=== PATIENT | female | born 1940 | race Caucasian/White ===

== ENCOUNTER 2019-01-10 21:05 | Emergency (ER) | payer MEDICAID, MEDICARE ==
[~2019-01-10] VITALS: Ht 157.5 cm; Wt 660.4 kg
--- NOTE | 2019-01-10 21:20 | NUR ---
Patient ambulated with stable gait. AAOx4. Patient relative at bedside for interpretation. Speech is clear, speaks in complete sentences. No neuro deficits noted. Patient came in with c/o N/V/D x 4 days s/p new diabetes medication administration. Patient in bed at lowest position, side rails upx2, call light within reach. Fall precautions per protocol implemented.
[2019-01-10] MEDS ORDERED: HYDROMORPHONE 1 MG/1 ML DISP.SYRIN IV ONE (21:30)
[2019-01-10] MEDS ORDERED: ONDANSETRON 4 MG/2 ML VIAL IV ONE (21:30)
[2019-01-10] MEDS ORDERED: IV NORMAL SALINE 1000 ML BAG IV ONE (21:30)
[2019-01-10] MEDS ORDERED: ONDANSETRON 4 MG/2 ML VIAL ONE (21:33)
[2019-01-10] MEDS ORDERED: HYDROMORPHONE 1 MG/1 ML DISP.SYRIN ONE (21:33)
[2019-01-10 21:59] LABS: CARBON DIOXIDE 20 mmol/L (21-32); CHLORIDE 100 mmol/L (98-107); GLUCOSE 132 mg/dL (74-106); POTASSIUM 4.3 mmol/L (3.5-5.1); UREA NITROGEN, BLOOD 19 mg/dL (7-18)
[2019-01-10 22:02] LABS: BASOPHILS # (AUTO) 0.1 K/uL (0.0-8.0); EOSINOPHILS # (AUTO) 0.2 K/uL (0.0-0.7); LYMPHOCYTES # (AUTO) 2.5 K/uL (20.0-40.0); MONOCYTES # (AUTO) 0.7 K/uL (2.0-10.0); PLATELET COUNT (AUTO) 280 K/uL (179-408); WHITE BLOOD COUNT (AUTO) 7.1 K/uL (3.8-11.8)
[2019-01-10 22:04] LABS: EOSINOPHILS % (AUTO) 2.4 % (0.0-7.0); HEMATOCRIT 24.6 % (31.2-41.9); LYMPHOCYTES % (AUTO) 35.5 % (20.5-51.5); MEAN CORPUSCULAR HEMOGLOBIN 17.4 uug (24.7-32.8); MEAN CORPUSCULAR HGB CONC 29 g/dL (32.3-35.6); MEAN CORPUSCULAR VOLUME 59.3 fL (75.5-95.3); MONOCYTES % (AUTO) 10.2 % (0.0-11.0); NEUTROPHILS # (AUTO) 3.6 K/uL (1.8-8.9); NEUTROPHILS % (AUTO) 50.9 % (38.5-71.5); RED BLOOD CELL COUNT(AUTO) 4.16 MIL/uL (3.63-4.92)
[2019-01-10 22:05] LABS: ALANINE AMINOTRANSFERASE 21 U/L (14-59); ALKALINE PHOSPHATASE 46 U/L (50-136); ASPARTATE AMINOTRANSFERASE 12 U/L (15-37); BILIRUBIN,DIRECT 0.1 mg/dL (0.0-0.2); BILIRUBIN,TOTAL 0.4 mg/dL (0.2-1.0); LIPASE 89 U/L (73-393)
[2019-01-10 22:07] LABS: HEMOGLOBIN 7.3 g/dL (10.9-14.3)
--- NOTE | 2019-01-10 22:11 | NUR ---
ERMD notified of HGB 7.3 and is aware of result. Per patient's relative, she stated that they are aware of the lab value being that low.
[2019-01-10 22:40] VITALS: BP 120/56
--- NOTE | 2019-01-10 22:41 | NUR ---
Patient discharged to home in stable conditon. Written and verbal after care instructions given. Patient verbalizes understanding of instructions. Patient ambulated with stable gait.
== END 2019-01-10 22:41 | disposition home or self-care (01) ==
LOC: ER 21:05
DX: D64.9 Anemia, unspecified (principal); R11.2 Nausea with vomiting, unspecified; R10.9 Unspecified abdominal pain; R19.7 Diarrhea, unspecified; E78.5 Hyperlipidemia, unspecified; E11.9 Type 2 diabetes mellitus without complications
CPT/HCPCS: 36415; 80048; 80076; 83690; 85025; 96374; 96375; 99283; J1170; J2405; A4663; J7030

== ENCOUNTER 2022-08-22 11:44 | Emergency (ER) | payer MEDICARE ==
[~2022-08-22] VITALS: Ht 165.1 cm; Wt 56.7 kg
[2022-08-22] MEDS ORDERED: BENZ-13 PO (12:52)
--- NOTE | 2022-08-22 13:05 | NUR ---
Patient discharged to home in stable condition. Written and verbal after care instructions given. Patient verbalizes understanding of instructions. Stressed follow up or return to ER for worsening s/s.
== END 2022-08-22 13:08 | disposition home or self-care (01) ==
LOC: ER 11:51
DX: J06.9 Acute upper respiratory infection, unspecified (principal); Z20.822 Contact with and (suspected) exposure to COVID-19; E11.9 Type 2 diabetes mellitus without complications; E78.5 Hyperlipidemia, unspecified
CPT/HCPCS: 71045; 87400; A4663

== ENCOUNTER 2023-02-09 05:18 | Emergency (ER) | payer MEDICARE, OTHER ==
[~2023-02-09] VITALS: Ht 162.6 cm; Wt 56.7 kg
[~2023-02-09 05:18] MED LIST: BENZ-13 PO
--- NOTE | 2023-02-09 05:39 | NUR ---
BIB family member with c/o abd pain, diarrhea x 3 days. Patient is alert and oriented x 3 Farsi speaking only. No s/s of any distress noted at this time. Assisted into gown, placed on monitor, informed of plan of care, #20g established in left AC, blood collected and sent to lab. has seen patient at bedside for exam. Side rails up will continue to monitor.
[2023-02-09] MEDS ORDERED: HYDROMORPHONE 1 MG/1 ML DISP.SYRIN IV ONE (05:45)
[2023-02-09] MEDS ORDERED: ONDANSETRON 4 MG/2 ML VIAL IV ONE (05:45)
[2023-02-09] MEDS ORDERED: IV NORMAL SALINE 1000 ML BAG IV ONE (05:45)
[2023-02-09] MEDS ORDERED: HYDROMORPHONE 1 MG/1 ML DISP.SYRIN ONE (05:47)
[2023-02-09] MEDS ORDERED: ONDANSETRON 4 MG/2 ML VIAL ONE (05:47)
[2023-02-09] MEDS ORDERED: OLME1TAB90 PO (05:57)
[2023-02-09] MEDS ORDERED: ASPI81TA31 PO (05:57)
[2023-02-09] MEDS ORDERED: ROSU20TA2 PO (05:57)
[2023-02-09] MEDS ORDERED: LOPE2TAB25 PO (05:57)
[2023-02-09] MEDS ORDERED: EMPA25TA PO (05:57)
[2023-02-09] MEDS ORDERED: GLIM1TAB18 PO (05:57)
[2023-02-09] MEDS ORDERED: LINA5TAB PO (05:57)
[2023-02-09] MEDS ORDERED: DEXL60CA3 PO (05:57)
[2023-02-09] MEDS ORDERED: METF-442 PO (05:57)
[2023-02-09] MEDS ORDERED: REPA2TAB10 PO (05:57)
--- NOTE | 2023-02-09 05:57 | NUR ---
Patient has been medicated as per order, IVF infusing as per order.
[2023-02-09 06:09] LABS: HEMATOCRIT 41.1 % (31.2-41.9); MEAN CORPUSCULAR HEMOGLOBIN 26.8 uug (24.7-32.8); MEAN CORPUSCULAR VOLUME 83.2 fL (75.5-95.3); PLATELET COUNT (AUTO) 212 K/uL (179-408)
[2023-02-09 06:20] LABS: CARBON DIOXIDE 23 mmol/L (21-32); CHLORIDE 98 mmol/L (98-107); CREATININE 1.5 mg/dL (0.6-1.3); GLUCOSE 215 mg/dL (74-106); POTASSIUM 4.4 mmol/L (3.5-5.1); UREA NITROGEN, BLOOD 32 mg/dL (7-18)
[2023-02-09 06:28] LABS: ALANINE AMINOTRANSFERASE 26 U/L (14-59); ALKALINE PHOSPHATASE 45 U/L (50-136); ASPARTATE AMINOTRANSFERASE 19 U/L (15-37); BILIRUBIN,DIRECT 0.1 mg/dL (0.0-0.2); BILIRUBIN,TOTAL 0.5 mg/dL (0.2-1.0); TOTAL PROTEIN, SERUM 7.9 g/dL (6.4-8.2)
--- NOTE | 2023-02-09 06:34 | NUR ---
Patient resting, remains easy to arouse, family at bedside aware awaiting results. No s/s of any distress noted, will continue to monitor.
[2023-02-09] MEDS ORDERED: SWABABLE VALVE TRANSFER SET EA MC ONE (06:38)
[2023-02-09] MEDS ORDERED: IOHEXOL 300MG/ML 100 ML INFUS..BTL ONE (06:39)
[2023-02-09] MEDS ORDERED: IV NORMAL SALINE 250 ML IV ONE (06:39)
--- NOTE | 2023-02-09 06:57 | NUR ---
Patient going off unit to CT via gurney at this time, family member also left at this time.
--- NOTE | 2023-02-09 07:00 | NUR ---
pt CT in process per JOHN Medeiros
[2023-02-09 07:04] LABS: LIPASE 269 U/L (73-393)
--- NOTE | 2023-02-09 07:30 | NUR ---
collected and sent urine to lab pt back from CT
--- NOTE | 2023-02-09 07:39 | NUR ---
covid swab collected and sent to lab
[2023-02-09 07:42] LABS: *BILIRUBIN,URIN NEGATIVE (NEGATIVE); *BLOOD, URINE NEGATIVE (NEGATIVE); *CLARITY,URINE CLEAR (CLEAR); *COLOR,URINE YELLOW (YELLOW); *UROBILINOGEN,URINE 0.2 E.U./dl (NORMAL); LEUKOCYTE ESTERASE ,URINE NEGATIVE (NEGATIVE); NITRITE, URINE NEGATIVE (NEGATIVE); PH,URINE 6.5 (5.0-8.0)
[2023-02-09 07:58] LABS: *KETONES,URINE 2+ (NEGATIVE)
[2023-02-09 08:00] LABS: UGLUCOSE 3+ (NEGATIVE)
--- NOTE | 2023-02-09 08:59 | NUR ---
called radiology for u/s f/u
--- NOTE | 2023-02-09 09:41 | NUR ---
pt. is able tro dc home, is currently speaking with dtr at this time
[2023-02-09] MEDS ORDERED: ONDA4TAB5 PO (09:47)
[2023-02-09 09:50] VITALS: BP 120/80
== END 2023-02-09 10:11 | disposition home or self-care (01) ==
LOC: ER 05:23
DX: R10.13 Epigastric pain (principal); R19.7 Diarrhea, unspecified; R11.2 Nausea with vomiting, unspecified; E78.5 Hyperlipidemia, unspecified; E11.9 Type 2 diabetes mellitus without complications; R07.89 Other chest pain; Z79.82 Long term (current) use of aspirin; Z79.899 Other long term (current) drug therapy; Z20.822 Contact with and (suspected) exposure to COVID-19
CPT/HCPCS: 99285; 74177; 96374; 76705; 71045; 96361; 96375; 87426; 80076; 80048; 81001; 83690; 85025; 84484 ×2; 36415; 93005; J2405; Q9967; J1170; J7040; A4663

== ENCOUNTER 2023-10-22 10:29 | Emergency (ER) | payer MEDICARE, OTHER ==
[~2023-10-22] VITALS: Ht 162.6 cm; Wt 56.2 kg
[~2023-10-22 10:29] MED LIST changes: +ASPI81TA31 PO; -BENZ-13 PO; +DEXL60CA3 PO; +EMPA25TA PO; +GLIM1TAB18 PO; +LINA5TAB PO; +LOPE2TAB25 PO; +METF-442 PO; +OLME1TAB90 PO; +ONDA4TAB5 PO; +REPA2TAB10 PO; +ROSU20TA2 PO
[2023-10-22] MEDS ORDERED: OLME1TAB88 PO (11:07)
[2023-10-22] MEDS ORDERED: VITAMIN D PO (11:07)
[2023-10-22] MEDS ORDERED: CYAN-10 IM (11:07)
[2023-10-22] MEDS ORDERED: INSU100I26 SQ (11:07)
[2023-10-22] MEDS ORDERED: SEMA0.25 SQ (11:07)
[2023-10-22] MEDS ORDERED: MECL-225 PO (11:07)
[2023-10-22 11:13] LABS: *BILIRUBIN,URIN NEGATIVE (NEGATIVE); *BLOOD, URINE NEGATIVE (NEGATIVE); *CLARITY,URINE CLEAR (CLEAR); *COLOR,URINE YELLOW (YELLOW); *KETONES,URINE TRACE (NEGATIVE); *PROTEIN,URINE NEGATIVE (NEGATIVE); *UROBILINOGEN,URINE 0.2 E.U./dl (NORMAL); LEUKOCYTE ESTERASE ,URINE NEGATIVE (NEGATIVE); NITRITE, URINE NEGATIVE (NEGATIVE)
[2023-10-22 11:24] LABS: CALCIUM 9.2 mg/dL (8.5-10.1); CARBON DIOXIDE 29 mmol/L (21-32); CHLORIDE 100 mmol/L (98-107); CREATININE 1.2 mg/dL (0.6-1.3); GLUCOSE 233 mg/dL (74-106); POTASSIUM 4.9 mmol/L (3.5-5.1); SODIUM SERUM 137 mmol/L (136-145); UREA NITROGEN, BLOOD 31 mg/dL (7-18)
[2023-10-22 11:33] LABS: ALANINE AMINOTRANSFERASE 26 U/L (14-59); ALBUMIN 3.7 g/dL (3.4-5.0); ALKALINE PHOSPHATASE 46 U/L (50-136); ASPARTATE AMINOTRANSFERASE 14 U/L (15-37); BILIRUBIN,DIRECT 0.1 mg/dL (0.0-0.2); BILIRUBIN,TOTAL 0.4 mg/dL (0.2-1.0); TOTAL PROTEIN, SERUM 7.6 g/dL (6.4-8.2)
[2023-10-22 11:42] LABS: BASOPHILS % (AUTO) 0.4 % (0.0-2.0); DIFFERENTIAL COMMENT 0; EOSINOPHILS # (AUTO) 0.4 K/uL (0.0-0.7); EOSINOPHILS % (AUTO) 6.1 % (0.0-7.0); HEMOGLOBIN 12.5 g/dL (10.9-14.3); LYMPHOCYTES # (AUTO) 2.2 K/uL (0.8-4.8); MEAN CORPUSCULAR HEMOGLOBIN 27.5 uug (24.7-32.8); MEAN CORPUSCULAR HGB CONC 33 g/dL (32.3-35.6); MEAN CORPUSCULAR VOLUME 83.3 fL (75.5-95.3); MONOCYTES # (AUTO) 0.5 K/uL (0.1-1.30); MONOCYTES % (AUTO) 7.6 % (0.0-11.0); NEUTROPHILS # (AUTO) 3.6 K/uL (1.8-8.9); NEUTROPHILS % (AUTO) 52.9 % (38.5-71.5); PLATELET COUNT (AUTO) 227 K/uL (179-408); RED BLOOD CELL COUNT(AUTO) 4.56 MIL/uL (3.63-4.92); RED CELL DISTRIBUTION WIDTH 13.6 % (12.3-17.7); WHITE BLOOD COUNT (AUTO) 6.8 K/uL (3.8-11.8)
[2023-10-22 11:54] LABS: UGLUCOSE 3+ (NEGATIVE)
[2023-10-22 12:08] LABS: BACTERIA,URINE NONE SEEN /HPF (NONE SEEN); RBC,URINE 0-3 /HPF (0-3); SQUAMOUS EPITHELIAL CELL,UR FEW /HPF (NONE SEEN); WBC,URINE 0-3 /HPF (0-3)
[2023-10-22 12:10] VITALS: O2SAT 97
[2023-10-22] MEDS ORDERED: ASPIRIN 325 MG TABLET PO ONE (12:15)
== END 2023-10-22 12:33 | disposition left against medical advice (07) ==
LOC: ER 10:29
DX: I63.9 Cerebral infarction, unspecified (principal); E78.5 Hyperlipidemia, unspecified; E11.9 Type 2 diabetes mellitus without complications; E03.9 Hypothyroidism, unspecified; Z79.82 Long term (current) use of aspirin; Z79.899 Other long term (current) drug therapy
CPT/HCPCS: 36415; 70450; 84484; 85025; 85730; 93005; A4606; A4663

== ENCOUNTER 2023-11-28 11:55 | Emergency (ER) | payer MEDICARE, OTHER ==
[~2023-11-28] VITALS: Ht 162.6 cm; Wt 55.8 kg
[~2023-11-28 11:55] MED LIST changes: +CYAN-10 IM; -GLIM1TAB18 PO; +INSU100I26 SQ; -LOPE2TAB25 PO; +MECL-225 PO; -METF-442 PO; +OLME1TAB88 PO; -OLME1TAB90 PO; +SEMA0.25 SQ; +VITAMIN D PO
[2023-11-28] MEDS ORDERED: MENT10LO8 MM (12:14)
[2023-11-28] MEDS ORDERED: ALBU0.63 NEB (12:14)
[2023-11-28 13:15] LABS: BASOPHILS # (AUTO) 0.1 K/UL (0.0-0.2); BASOPHILS % (AUTO) 1.1 % (0.0-2.0); EOSINOPHILS # (AUTO) 0.2 K/uL (0.0-0.7); EOSINOPHILS % (AUTO) 3.8 % (0.0-7.0); HEMATOCRIT 36.7 % (31.2-41.9); LYMPHOCYTES % (AUTO) 29.8 % (20.5-51.5); MEAN CORPUSCULAR HEMOGLOBIN 27.1 uug (24.7-32.8); MEAN CORPUSCULAR HGB CONC 33 g/dL (32.3-35.6); MEAN CORPUSCULAR VOLUME 83.1 fL (75.5-95.3); MONOCYTES # (AUTO) 0.5 K/uL (0.1-1.30); MONOCYTES % (AUTO) 7.5 % (0.0-11.0); NEUTROPHILS # (AUTO) 3.8 K/uL (1.8-8.9); NEUTROPHILS % (AUTO) 57.8 % (38.5-71.5); PLATELET COUNT (AUTO) 208 K/uL (179-408); RED BLOOD CELL COUNT(AUTO) 4.41 MIL/uL (3.63-4.92); RED CELL DISTRIBUTION WIDTH 14.1 % (12.3-17.7); WHITE BLOOD COUNT (AUTO) 6.5 K/uL (3.8-11.8)
[2023-11-28 13:17] LABS: DIFFERENTIAL COMMENT 1
[2023-11-28 13:38] LABS: ALANINE AMINOTRANSFERASE 29 U/L (14-59); ALBUMIN 3.8 g/dL (3.4-5.0); ALKALINE PHOSPHATASE 58 U/L (50-136); ASPARTATE AMINOTRANSFERASE 15 U/L (15-37); BILIRUBIN,DIRECT 0.1 mg/dL (0.0-0.2); BILIRUBIN,TOTAL 0.3 mg/dL (0.2-1.0); CALCIUM 9.5 mg/dL (8.5-10.1); CARBON DIOXIDE 26 mmol/L (21-32); CHLORIDE 102 mmol/L (98-107); CREATININE 1.2 mg/dL (0.6-1.3); GLUCOSE 231 mg/dL (74-106); NT-PRO BNP 74 pg/mL (0-125); POTASSIUM 4.2 mmol/L (3.5-5.1); SODIUM SERUM 137 mmol/L (136-145); TOTAL PROTEIN, SERUM 7.4 g/dL (6.4-8.2); UREA NITROGEN, BLOOD 34 mg/dL (7-18)
[2023-11-28] MEDS ORDERED: FURO-152 PO ×2 (14:17→14:21)
[2023-11-28 14:30] VITALS: BP 130/80; TEMP 97; O2SAT 99
== END 2023-11-28 14:30 | disposition home or self-care (01) ==
LOC: ER 11:59
DX: I50.9 Heart failure, unspecified (principal); E78.5 Hyperlipidemia, unspecified; Z79.82 Long term (current) use of aspirin; Z79.899 Other long term (current) drug therapy
CPT/HCPCS: 36415; 71045; 83605; 84484; 85025; 85730; 87040; 93005; A4606; A4663

== ENCOUNTER 2024-05-21 09:33 | Emergency (ER) | payer MEDICARE, OTHER ==
[~2024-05-21] VITALS: Ht 162.6 cm; Wt 56.7 kg
[~2024-05-21 09:33] MED LIST changes: +ALBU0.63 NEB; +FURO-152 PO; +MENT10LO8 MM
[2024-05-21] MEDS ORDERED: KETOROLAC TROMETHAMINE 15 MG INJ ONE (10:04)
[2024-05-21] MEDS ORDERED: ONDANSETRON 4 MG/2 ML VIAL ONE ×2 (10:04→10:56)
[2024-05-21] MEDS ORDERED: HYDROMORPHONE 1 MG/1 ML DISP.SYRIN ONE (10:05)
[2024-05-21] MEDS: KETOROLAC TROMETHAMINE 15 MG INJ IVP ONE (10:11)
[2024-05-21] MEDS: HYDROMORPHONE 1 MG/1 ML DISP.SYRIN IV ONE (10:11)
[2024-05-21] MEDS: ONDANSETRON 4 MG/2 ML VIAL IV ONE ×2 (10:11→11:02)
[2024-05-21] MEDS ORDERED: HYDR-3980 PO (12:58)
[2024-05-21] MEDS ORDERED: robaxin (12:58)
[2024-05-21 13:32] VITALS: BP 135/51; O2SAT 99
== END 2024-05-21 13:34 | disposition home or self-care (01) ==
LOC: ER 09:35
DX: S39.012A Strain of muscle, fascia and tendon of lower back, initial encounter (principal); E78.5 Hyperlipidemia, unspecified; E11.9 Type 2 diabetes mellitus without complications; Z79.51 Long term (current) use of inhaled steroids; Z79.899 Other long term (current) drug therapy; Z79.891 Long term (current) use of opiate analgesic; X58.XXXA Exposure to other specified factors, initial encounter; Y93.89 Activity, other specified; Y92.89 Other specified places as the place of occurrence of the external cause; Y99.8 Other external cause status
CPT/HCPCS: 99284; 96374; 72131; 96375; 96376; J1885; J2405; J1170; A4606; A4663